=== PATIENT | male | born 1980 | race Caucasian/White ===

== ENCOUNTER 2019-09-15 13:13 | Emergency (ER) | payer SELFPAY ==
[~2019-09-15] VITALS: Ht 185.4 cm; Wt 108.9 kg
[~2019-09-15 13:13] MED LIST: CATAFLAM50 MG PO; DAYPRO600 M1 PO; FLEXERIL10 MG PO; KEFLEX500 MG PO; MEDROL DOSEPAK4 MG PO; MOTRIN800 MG PO; NKHM; OXYCODONE HYDRO10 M2 PO; PERCOCET 325 MG1 TA5 PO; ROBAXIN750 MG PO; TRAMADOL HCL50 MG PO
[2019-09-15] MEDS ORDERED: METHOCARBAMOL500 M1 PO (15:25)
[2019-09-15] MEDS ORDERED: PREDNISONE20 M1 PO (15:25)
[2019-09-15] MEDS ORDERED: NAPROSYN500 MG PO (15:25)
== END 2019-09-15 15:37 | disposition home or self-care (01) ==
LOC: ED 13:13
DX: M54.41 Lumbago with sciatica, right side (principal); F17.200 Nicotine dependence, unspecified, uncomplicated; Z79.899 Other long term (current) drug therapy

== ENCOUNTER → 2021-01-20 | Outpatient (CLI) | payer OTHER ==
[~2021-01-20] MED LIST changes: +METHOCARBAMOL500 M1 PO; +NAPROSYN500 MG PO; +PREDNISONE20 M1 PO
== END | disposition home or self-care (01) ==
LOC: COVID19 15:53
PROVIDERS: ATTEND Internal Medicine
DX: Z11.52 Encounter for screening for COVID-19 (principal)

== ENCOUNTER 2023-05-10 19:04 | Emergency (ER) | payer MEDICAID ==
[~2023-05-10] VITALS: Ht 185.4 cm; Wt 104.3 kg
[2023-05-10 19:56] LABS: BASO % 0.4 % (0.0-1.0); EOS # 0.1 10*3/uL (0.0-0.4); EOS % 0.9 % (1.0-4.0); HEMATOCRIT 42.9 % (42.0-52.0); LYMPH # 0.8 10*3/uL (1.3-4.4); LYMPH % 10.5 % (27.0-41.0); MEAN CELL VOLUME 86.5 fl (80.0-94.0); MEAN CORPUSCULAR HGB 29.2 pg (27.0-31.0); MEAN CORPUSCULAR HGB CONC 33.8 g/dl (33.0-37.0); MEAN PLATELET VOLUME 9.5 fl (9.6-12.3); MONO # 0.3 10*3/uL (0.1-1.0); MONO % 4.3 % (3.0-9.0); NEUT # 6.4 10*3/uL (2.3-7.9); NEUT % 83.5 % (47.0-73.0); PLATELET COUNT AUTOMATED 227 10*3/uL (130-400); RED BLOOD COUNT 4.96 10*6/uL (4.50-5.90); RED CELL DISTRI WIDTH 12.3 % (0-14.5); WHITE BLOOD COUNT 7.6 10*3/uL (4.8-10.8)
[2023-05-10 20:18] LABS: ALKALINE PHOSPHATASE 57 U/L (46-116); BUN 11 mg/dl (9-23); CHLORIDE 102 mmol/L (98-107); POTASSIUM 4.2 mmol/L (3.4-5.1); SGPT/ALT 26 U/L (10-49); TOTAL PROTEIN 7.1 gm/dL (6.0-8.0)
== END 2023-05-10 23:00 | disposition home or self-care (01) ==
LOC: ED 19:04
PROVIDERS: Student in an Organized Health Care Education/Training Program
DX: S30.1XXA Contusion of abdominal wall, initial encounter (principal); Z79.899 Other long term (current) drug therapy; Z98.890 Other specified postprocedural states; W39.XXXA Discharge of firework, initial encounter; Y93.89 Activity, other specified; Y92.89 Other specified places as the place of occurrence of the external cause; Y99.8 Other external cause status

== ENCOUNTER 2025-10-09 03:56 | Emergency (ER) | payer SELFPAY ==
[~2025-10-09] VITALS: Ht 185.4 cm; Wt 93.0 kg
[2025-10-09] MEDS ORDERED: AMOXICILLIN 875 MG TAB PO ONE (04:15)
[2025-10-09] MEDS ORDERED: AMOXICILLIN875 MG PO (04:15)
== END 2025-10-09 04:29 | disposition home or self-care (01) ==
LOC: ED 03:56
DX: K08.89 Other specified disorders of teeth and supporting structures (principal); Z98.890 Other specified postprocedural states